=== PATIENT | male | born 1980 | race Caucasian/White ===

== ENCOUNTER 2016-07-10 17:06 | Emergency (ER) | payer OTHER ==
[2016-07-10 17:22] VITALS: BP 125/73
[2016-07-10] MEDS ORDERED: Ketorolac INJ* 60 MG/2 ML VIAL IM ONE (17:39)
--- NOTE | 2016-07-10 17:44 | UC ---
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 pain is on right side, radiated into thigh - History of Current Complaint Chief Complaint: UCBackPain Stated Complaint: LOW BACK PAIN Time Seen by Provider: 07/10/16 17:27 Hx Obtained From: Patient Onset/Duration: Sudden Onset, Lasting Days Timing: Lasting Hours Severity Initially: Moderate Severity Currently: Moderate Back Pain: Is Discrete @ - right lumbar Aggravating: Movement, Bending, Walking Alleviating: Nothing Associated Signs And Symptoms: Positive: Pain with Weight Bearing - Allergies/Home Medications Allergies/Adverse Reactions: Allergies Allergy/AdvReac Type Severity Reaction Status Date / Time No Known Allergies Allergy Verified 07/10/16 17:22 Home Medications: Home Medications Ibuprofen TAB* [Motrin TAB* 600 MG] 600 mg PO Q6H PRN 07/10/16 [History Confirmed 07/10/16] PMH/Surg Hx/FS Hx/Imm Hx Previously Healthy: Yes - Surgical History Surgical History: None - Family History Known Family History: Positive: Hypertension - Social History Alcohol Use: Rare Substance Use Type: None Smoking Status (MU): Current Every Day Smoker Type: Cigarettes Amount Used/How Often: 1/2 PPD Length of Time of Smoking/Using Tobacco: 25 YRS Have You Smoked in the Last Year: Yes Review of Systems Constitutional: Negative Skin: Negative Eyes: Negative ENT: Negative Respiratory: Negative Cardiovascular: Negative Gastrointestinal: Negative Genitourinary: Negative Motor: Negative Neurovascular: Negative Musculoskeletal: Arthralgia, Decreased ROM, Myalgia Neurological: Negative Psychological: Negative All Other Systems Reviewed And Are Negative: Yes Physical Exam Triage Information Reviewed: Yes Appearance: Well-Appearing, Well-Nourished, Pain Distress Vital Signs: Initial Vital Signs Temp 98 F 07/10/16 17:16 Pulse 65 07/10/16 17:16 Resp 16 07/10/16 17:16 BP 125/73 07/10/16 17:16 Pulse Ox 96 07/10/16 17:16 Vital Signs Reviewed: Yes Eye Exam: Normal Eyes: Positive: Conjunctiva Clear ENT: Positive: Normal ENT inspection, Hearing grossly normal, Pharynx normal, TMs normal Dental Exam: Normal Neck exam: Normal Neck: Positive: Supple, Nontender, No Lymphadenopathy Respiratory Exam: Normal Respiratory: Positive: Chest non-tender, Lungs clear, Normal breath sounds Cardiovascular Exam: Normal Cardiovascular: Positive: RRR, No Murmur, Pulses Normal Abdominal Exam: Normal Abdomen Description: Positive: Nontender, No Organomegaly, Soft - neg CVA tenderness Bowel Sounds: Positive: Present Musculoskeletal: Positive: No Edema, ROM Limited @ - in lateral flexion of torse , ext and flexion of low back, right SI joint is about 1 inch lower than left when standing Neurological: Positive: Alert, Muscle Tone Normal Psychological Exam: Normal Skin Exam: Normal Back Pain Course/Dx - Course Course Of Treatment: hx obtained, exam performed, med given for pain, xray obtained mild spurring ans stenosis seen, see report. Given meloxicam for the nest two weeks, recommend PT follow up. - Differential Dx/Diagnosis Differential Diagnosis/HQI/PQRI: Herniated Disc, Strain, Sprain Provider Diagnoses: si joint dysfunction. low back pain Discharge - Discharge Plan Condition: Stable Disposition: HOME Prescriptions: Meloxicam [Mobic] 15 mg PO DAILY #14 tab Patient Education Materials: Sacroiliitis (ED), Lower Back Exercises (ED) Additional Instructions: Take the meloxicam daily for the next two weeks. I have included some stretches to help stretch the back. I recommend that if pain persists you follow up with physical therapy.
--- NOTE | 2016-07-10 18:23 | RAD ---
INDICATION: Leg and back pain COMPARISON: None TECHNIQUE: Routine PA, lateral, and oblique imaging was performed . FINDINGS: Bones: There are no acute bony findings. There are there is minor spurring and endplate sclerosis at L4-L5 and L5-S1. Alignment: Normal Disc spaces: The disc spaces are well-maintained Soft tissues: There are no soft tissue abnormalities. IMPRESSION: MINOR OSTEOARTHRITIS LOWER LUMBAR SPINE
== END 2016-07-10 19:00 | disposition home or self-care (01) ==
LOC: UCCORT 17:06
DX: M53.3 Sacrococcygeal disorders, not elsewhere classified (principal); M47.896 Other spondylosis, lumbar region; F17.210 Nicotine dependence, cigarettes, uncomplicated
CPT/HCPCS: 72100; 96372; 99202; G0463; J1885

== ENCOUNTER 2017-08-25 13:36 | Emergency (ER) | payer SELFPAY ==
[2017-08-25] MEDS ORDERED: Ibuprofen TAB* 800 MG PO ONE (15:33)
[2017-08-25] MEDS ORDERED: Sulfamethox/Trimethoprim DS 800/160* TAB PO ONE (16:35)
[2017-08-25 16:49] VITALS: BP 128/85
--- NOTE | 2017-08-25 16:56 | ED ---
Zaid Patterson Angela, scribed for Ryder Paulino on 08/25/17 at 1632 . Skin Complaint - HPI Summary HPI Summary: This pt is a 37 y/o male presenting to [facility] for an open wound on right elbow s/ p laceration repair. Pt reports that he injured his right elbow approximately 1 month ago sustaining a laceration. Pt had a laceration repair with stitches. He notes he took them out too early and his laceration dehisced while taking a shower. Pt presents with an open wound to his right elbow. 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 He states his tetanus shot is UTD. - History of Current Complaint Chief Complaint: EDLacSutureRecheck Time Seen by Provider: 08/25/17 16:21 Stated Complaint: RT ARM LAC Hx Obtained From: Patient Onset/Duration: Started Days Ago Timing: Lasting Days Current Severity: Mild Pain Intensity: 2 Pain Scale Used: 0-10 Numeric Skin Location: Other: - right elbow Character: Redness, Painful Aggravating Symptom(s): Nothing Alleviating Symptom(s): Nothing Associated Signs & Symptoms: Negative - Allergy/Home Medications Allergies/Adverse Reactions: Allergies Allergy/AdvReac Type Severity Reaction Status Date / Time No Known Allergies Allergy Verified 07/10/16 17:22 PMH/Surg Hx/FS Hx/Imm Hx Endocrine/Hematology History: Denies: Hx Diabetes Cardiovascular History: Denies: Hx Hypertension Infectious Disease History: No Infectious Disease History: Denies: Traveled Outside the [place] in Last 30 Days - Family History Known Family History: Positive: Hypertension - Social History Alcohol Use: Rare Substance Use Type: Reports: None Smoking Status (MU): Current Every Day Smoker Type: Cigarettes Amount Used/How Often: 1/2 PPD Length of Time of Smoking/Using Tobacco: 25 YRS Have You Smoked in the Last Year: Yes Review of Systems Negative: Fever, Chills ENT: Negative Cardiovascular: Negative Respiratory: Negative Gastrointestinal: Negative Skin: Other - wound on right elbow Neurological: Negative All Other Systems Reviewed And Are Negative: Yes Physical Exam - Summary Physical Exam Summary: Appearance: Well appearing, no pain distress Skin: warm, dry, reflects adequate perfusion. Healing wound on right elbow. Head/face: normal Eyes: EOMI, RAUL ENT: normal Neck: supple, nontender Respiratory: CTA, breath sounds present Cardiovascular: RRR, pulses symmetrical Abdomen: nontender, soft Bowel: present Musculoskeletal: normal, strength/ROM intact Neuro: normal, sensory motor intact, A&Ox3 Triage Information Reviewed: Yes Vital Signs On Initial Exam: Initial Vitals Temp Pulse Resp BP Pulse Ox 97.1 F 60 16 136/90 98 08/25/17 13:42 08/25/17 13:42 08/25/17 13:42 08/25/17 13:42 08/25/17 13:42 Vital Signs Reviewed: Yes Diagnostics - Vital Signs Vital Signs Temp Pulse Resp BP Pulse Ox 08/25/17 13:42 97.1 F 60 16 136/90 98 - Laboratory Lab Statement: Any lab studies that have been ordered have been reviewed, and results considered in the medical decision making process. Course/Dx - Course Assessment/Plan: Pt is a 37 y/o male presenting to [facility] for an open wound on right elbow s/p laceration repair approximately 1 month ago. Pt will be given antibiotics to treat wound infection. 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 He was also given a referral to the wound clinic. Pt will be discharged home with follow up at the wound clinic. Dx: infected wound on right elbow, s/p laceartaion suturing. - Diagnoses Provider Diagnoses: Infected wound Discharge - Sign-Out/Discharge Documenting (check all that apply): Discharge/Admit/Transfer - discharge to home - Discharge Plan Condition: Stable Disposition: HOME Prescriptions: Sulfamethox/Trimethoprim DS* [Bactrim DS 800/160 TAB*] 1 tab PO BID #20 tab Patient Education Materials: Acute Wound Care (ED) Referrals: [facility] [Outside] Jaleesa Werner MD [Primary Care Provider] - Additional Instructions: Please follow up with the wound clinic. RETURN TO THE ED FOR ANY WORSENING SYMPTOMS. The documentation as recorded by the Zaid dumas Angela accurately reflects the service I personally performed and the decisions made by Jefferson ledesma Emmanuel.
== END 2017-08-25 16:47 | disposition home or self-care (01) ==
LOC: ED 13:36
DX: S51.0 Open wound of elbow (principal); L08.9 Local infection of the skin and subcutaneous tissue, unspecified; X58.XXXS Exposure to other specified factors, sequela; F17.210 Nicotine dependence, cigarettes, uncomplicated
CPT/HCPCS: 99282; A9270-GY